=== PATIENT | female | born 1940 | race Hispanic/Latino ===

== ENCOUNTER 2023-03-07 17:09 | Emergency (ER) | payer OTHER, BC ==
--- OUTSIDE RECORDS SUMMARY | 2023-03-07 17:18 | XMS REPORT | Continuity of Care Document ---
:1940 Author Organization [facility] t Address [address] [place] [address] Care Team Providers Name Role Phone ADALBERTO PALMA Attending Clinician Unavailable Problems This patient has no known problems. Allergies, Adverse Reactions, Alerts This patient has no known allergies or adverse reactions. Social History Social Habit Start Date Stop Date Quantity Comments Source Sex Assigned At [address] [facility] Medications This patient has no known medications. Procedures This patient has no known procedures. Plan of Care Planned Activity Planned Date Details Comments Source Future Scheduled 2023-03-08 Influenza Vaccine (#1) [facility] 00:00[facility]00 [code = Influenza Medical Ce nter Vaccine (#1)] Future Scheduled 2022-11-21 DXA SCAN [code = DXA [facility] 00:00:00 SCAN] [facility] Future Scheduled 2022-07-[address] [facility] 00:00:00 (12+) [code = Medical Center DEPRESSION SCREENING (12+)] Future Scheduled 2022-07-08 FALLS RISK SCREENING [facility] 00:00:00 [code = FALLS RISK Medical C enter SCREENING] Future Scheduled 2008-11-[address] [facility] 00:00:00 WELLNESS (YEAR 2 or Medical Center FIRST YEAR if no IPPE) [code = MEDICARE ANNUAL WELLNESS (YEAR 2 or FIRST YEAR if no IPPE)] Future Scheduled 2007-11-10 PNEUMOCOCCAL 65+ YRS [facility] 00:00:00 (1 - PCV) [code = Medical Ce nter PNEUMOCOCCAL 65+ YRS (1 - PCV)] Future Scheduled 1992 SHINGLES VACCINES ([address] [facility] 00:00:00 of 2) [code = SHINGLES Medic al Center VACCINES (1 of 2)] Future Scheduled 1961 DTAP/TDAP/TD VACCINES [facility] 00:00:00 (1 - Tdap) [code = Medical C enter DTAP/TDAP/TD VACCINES (1 - Tdap)] Future Scheduled [address] [facility] 00:00:00 Counseling and Medical Cente r Screening (12+) [code = Tobacco Cessation Counseling and Screening (12+)] Future Scheduled 1943-05-12 COVID-19 VACCINE (#1) [facility] 00:00:00 [code = COVID-[address] VACCINE (#1)] Encounters Start End Encounter Admission Attending Care Care Encounter Source Date/Time Date/Time Type Type Clinicians Facility Department ID 2020-11-21 2020-11-21 Outpatient [facility] [id number] [facility] 00:00:00 00:00:00 ADALBERTO Results Test Description Test Time Test Comments Results Result Sourc e Comments RAD, BONE DENSITY 2020-11-21 Reason for STUDY 14:05:00 Exam:->Osteopenia , unspecified location; Other [facility] - specified MEDICAL CENTERName: disorders of bone LOBOPITA density and : 1940 Sex: structure, F multiple sites *FINAL REPORT EXAM: BONE MINERAL DENSITYHISTORY: Bone mineralization evaluationCOMPARISON : NoneDISCUSSION: Evaluation of the left hip, lumbar spine, and forearm was performed utilizing DEXA Hologic bone densitometer. The study is technically adequate. Left hip femoral neck bone mineral density: 0.68 g/cm2, T-score is -1.5, Z-score is 0.7. Left hip total bone mineral density: 0.79 g/cm2, T-score is -1.2, Z-score is 0.8. Lumbar spine total bone mineral density: 1.29 gm/cm2, T-score is 2.2, Z-score is 4.8. Proximal one third forearm bone mineral density: 0.66 gm/cm2, T-score is -0.6, Z-score is 2.3. 10 year fracture risk major osteoporotic fracture 23% and hip fracture 5.2%. Impression:Bone mineralization by WHO Classification is osteopenia, the fracture risk is increased. Signed: Escobar Subramanian MDReport Verified Date/Time: 11/21/2020 14:05:13 Reading Location: [facility] Room [address] [place] [address]
--- NOTE | 2023-03-07 18:53 | RAD REPORT ---
EXAM DESCRIPTION: RAD - Wrist Right 3 View - 03/07/2023 6:12 pm CLINICAL HISTORY: PAIN COMPARISON: No comparisons TECHNIQUE: Right wrist, 3 views. FINDINGS: No acute fracture. There is no dislocation or periosteal reaction noted. Scattered up to m oderate degenerative changes throughout the wrist. No other significant bony finding. Pronounced mine ralization along the posterior aspect of the proximal carpal row and in the region of the TFCC. Mild soft tissue swelling about the wrist and distal forearm especially laterally. IMPRESSION: Degenerative changes without acute osseous abnormality. Soft tissue swelling as above. 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
[2023-03-07 19:20] LABS: Hematocrit 32.9 % (36.0-45.0); Lymphocytes % 23.2 % (15.3-44.8); MCV 91.9 fL (80-100); MPV 8.1 fL (7.6-11.3); Platelets 207 thou/uL (152-406); RBC Red Blood Cell Count 3.58 M/uL (3.86-4.86)
[2023-03-07 19:36] LABS: Albumin 3.9 g/dL (3.4-5.0); Bilirubin Total 0.3 mg/dL (0.2-1.0); Potassium 4.5 mEq/L (3.5-5.1)
[2023-03-07] MEDS ORDERED: ONDANSETRON 4 MG/2 ML VIAL ONE (19:48)
[2023-03-07 20:56] LABS: Urine Bacteria None Seen /HPF (<20); Urine Bilirubin NEGATIVE (Negative); Urine Blood Negative (Negative); Urine Clarity Turbid (Clear); Urine Color Light-Yellow (Yellow); Urine Glucose NEGATIVE (Negative); Urine Mucus Slight /HPF (None Seen); Urine Protein NEGATIVE (Negative); Urine RBC <5 /HPF (None Seen); Urine Urobilinogen Normal (Normal); Urine pH 5.5 (5.0-7.0)
--- NOTE | 2023-03-07 21:36 | ER ---
Nurse's Notes [facility] Name: Sil Motta Age: 82 yrs Sex: Female : 1940 Arrival Date: 03/07/2023 Time: 17:09 Bed 18 Private MD: Maximus Cisneros Diagnosis: Other abnormal findings in urine Presentation: 03/07 17:31 Chief complaint: Patient's son or daughter states: the patient has been on three rounds ap3 of antibiotics for a UTI, but it is not getting better. daughter reports she was sent by PCP for admission and better antibiotics. patients daughter also reports a lump was found on her right side, and she has an outpatient MRI scheduled but was thinking if she's here, she could get it now. patients daughter also states the patient had a recent fall and had an injury to her right arm. Coronavirus screen: At this time, the client does not indicate any symptoms associated with coronavirus-19. Ebola Screen: No symptoms or risks identified at this time. Initial Sepsis Screen: Does the patient meet any 2 criteria? No. Patient's initial sepsis screen is negative. Does the patient have a suspected source of infection? Yes: Dysuria/Frequency/Urgency/UTI. Risk Assessment: Do you want to hurt yourself or someone else? Patient reports no desire to harm self or others. Onset of symptoms is unknown. 17:31 Method Of Arrival: Wheelchair ap3 17:31 Acuity: MATHIEU 3 ap3 Triage Assessment: 17:36 General: Appears in no apparent distress. Behavior is calm, cooperative, appropriate ap3 for age. Pain: Denies pain. Neuro: Level of Consciousness is awake, alert, obeys commands, Oriented to person, place, time, situation. Cardiovascular: Patient's skin is warm and dry. Respiratory: Airway is patent Respiratory effort is even, unlabored, Respiratory pattern is regular, symmetrical. : Parent/caregiver report the patient having recent UTI. Musculoskeletal: Parent/caregiver report the patient having pain in right arm. 17:37 : Reports urgency, urinary frequency. ap3 Historical: - Allergies: 17:35 Amoxicillin; ap3 - PMHx: 17:35 Hypertensive disorder; Diabetes mellitus; UTI; ap3 - Immunization history:: Client reports receiving the 2nd dose of the Covid vaccine. - Social history:: Smoking status: Patient denies any tobacco usage or history of. Screenin:36 [facility] ED Fall Risk Assessment (Adult) History of falling in the last 3 months, ap3 including since admission Yes- fall prone (multiple falls) (3 pts) Confusion or Disorientation No (0 pts) Intoxicated or Sedated No (0 pts) Impaired Gait Yes (1 pt) Mobility Assist Device Used Yes (1 pt). Abuse screen: Denies threats or abuse. Nutritional screening: No deficits noted. Tuberculosis screening: No symptoms or risk factors identified. Assessment: 19:00 General: Appears in no apparent distress. comfortable, Behavior is calm, cooperative, nj1 appropriate for age. Pain: Complains of pain in right wristand and right buttock/hip area. 19:00 Neuro: Level of Consciousness is awake, alert, obeys commands, Oriented to person, nj1 place, time, situation. Cardiovascular: Patient's skin is warm and dry. Respiratory: Airway is patent Respiratory effort is even, unlabored. : Reports Dysuria. Derm: Skin has skin tears on Left hand. 20:00 Reassessment: Patient appears in no apparent distress at this time. Patient and/or nj1 family updated on plan of care and expected duration. Pain level reassessed. Patient is alert, oriented x 3, equal unlabored respirations, skin warm/dry/pink. 21:45 Reassessment: No changes from previously documented assessment. Patient and/or family mb9 updated on plan of care and expected duration. Pain level reassessed. Patient is alert, oriented x 3, equal unlabored respirations, skin warm/dry/pink. Vital Signs: 17:31 BP 134 / 66; Pulse 78; Resp 18; Temp 98.8; Pulse Ox 100% ; Weight 71.67 kg; ap3 19:00 BP 178 / 83; Pulse 80; Resp 16; Pulse Ox 100% on R/A; nj1 20:00 BP 154 / 78; Pulse 77; Resp 18; Pulse Ox 96% on R/A; nj1 21:45 BP 150 / 71; Pulse 85; Resp 18; Pulse Ox 100% on R/A; mb9 ED Course: 17:12 Patient arrived in ED. rg4 17:13 Maximus Cisneros MD is Private Physician. rg4 17:15 Amrita Arenas PA-C is [facility]. sb4 17:15 Ector Martinez DO is Attending Physician. sb4 17:33 Triage completed. ap3 17:37 Arm band placed on left wrist. ap3 18:14 Wrist Right 3 View XRAY In Process Unspecified. EDMS 18:15 Patient placed in an exam room, on a stretcher. ap3 18:22 Ashleigh Kim, RN is Primary Nurse. nj1 19:00 Patient has correct armband on for positive identification. Bed in low position. Call nj1 light in reach. Adult w/ patient. 19:00 Provided Education on: fall precautions, call light. nj1 19:00 Inserted saline lock: 22 gauge in left antecubital area, using aseptic technique. Blood nj1 collected. 21:04 Report received from ILEANA Sotelo. mb9 21:35 Maximus Cisneros MD is Referral Physician. sb4 21:45 No provider procedures requiring assistance completed. IV discontinued, intact, mb9 bleeding controlled, No redness/swelling at site. Pressure dressing applied. Administered Medications: 19:40 Drug: Ondansetron IVP 4 mg Route: IVP; Site: left antecubital; nj1 20:37 Follow up: Response: No adverse reaction; Nausea is decreased nj1 Medication: 17:37 VIS not applicable for this client. ap3 Outcome: 21:35 Discharge ordered by . sb4 21:46 Discharged to home via wheelchair, with family. mb9 21:46 Condition: stable 21:46 Discharge instructions given to patient, family, Instructed on discharge instructions, follow up and referral plans. Demonstrated understanding of instructions, follow-up care. 21:46 Patient left the ED. mb9 Signatures: Dispatcher [employer] EDNJ Fabby Kelly rg4 Melinda Roblero RN RN ap3 Amrita Arenas PA-C PAWyattC sb4 Brianda Torres RN RN mb9 Ashleigh Kim, ILEANA RN nj1 Corrections: (The following items were deleted from the chart) 17:38 17:31 Chief complaint: Patient's son or daughter states: the patient has been on three ap3 rounds of antibiotics for a UTI, but it is not getting better. daughter reports she was sent by PCP for admission and better antibiotics. patients daughter also reports a lump was found on her right arm, and she has an outpatient MRI scheduled but was thinking if she's here, she could get it now. patients daughter also states the patient had a recent fall and had an injury to her right arm ap3
--- NOTE | 2023-03-07 21:36 | EDPHYS ---
Physician Documentation [facility] Name: Sil Motta Age: 82 yrs Sex: Female : 1940 Arrival Date: 03/07/2023 Time: 17:09 Bed 18 Private MD: Maximus Cisneros ED Physician Ector Martinez HPI: 03/07 18:23 This 82 yrs old Female presents to ER via Wheelchair with complaints of sb4 Urinary Problem, Abnormal Lab Results. 18:23 Onset: The symptoms/episode began/occurred gradually. Associated signs and symptoms: sb4 Pertinent positives: dysuria, fever, Pertinent negatives: abdominal pain, headache, vomiting. The patient has been recently seen by a physician: the patient's primary care provider. Patient states that she has had a UTI for some time now but has not resolved with 3 different rounds of antibiotics. She was sent by her PCP for IV antibiotic therapy. She also complains of falls. She had 1 last night and is complaining of right wrist pain. Historical: - Allergies: 17:35 Amoxicillin; ap3 - PMHx: 17:35 Hypertensive disorder; Diabetes mellitus; UTI; ap3 - Immunization history:: Client reports receiving the 2nd dose of the Covid vaccine. - Social history:: Smoking status: Patient denies any tobacco usage or history of. ROS: 03/08 01:39 Constitutional: Negative for fever, chills, and weight loss. sb4 : Positive for urinary frequency, small amounts. MS/extremity: Positive for pain, of the right wrist. All other systems are negative. Exam: 01:39 Constitutional: This is a well developed, well nourished patient who is awake, alert, sb4 and in no acute distress. Head/Face: Normocephalic, atraumatic. Eyes: Extra-ocular motions intact. Periorbital areas with no swelling, redness, or edema. ENT: Mucous membranes moist. Cardiovascular: Regular rate and rhythm with a normal S1 and S2. Respiratory: Lungs have equal breath sounds bilaterally, clear to auscultation and percussion. No rales, rhonchi or wheezes noted. No increased work of breathing, no retractions or nasal flaring. Abdomen/GI: Soft, non-tender, no distension. Skin: Warm, dry with normal turgor. Normal color with no rashes, no lesions, and no evidence of cellulitis. Neuro: Awake and alert, GCS 15, oriented to person, place, time, and situation. Cranial nerves II-XII grossly intact. Motor strength 5/5 in all extremities. Sensory grossly intact. Cerebellar exam normal. Normal gait. 01:39 Musculoskeletal/extremity: ROM: intact in all extremities, Circulation is intact in all extremities. Sensation intact. Vital Signs: 03/07 17:31 BP 134 / 66; Pulse 78; Resp 18; Temp 98.8; Pulse Ox 100% ; Weight 71.67 kg; ap3 19:00 BP 178 / 83; Pulse 80; Resp 16; Pulse Ox 100% on R/A; nj1 20:00 BP 154 / 78; Pulse 77; Resp 18; Pulse Ox 96% on R/A; nj1 21:45 BP 150 / 71; Pulse 85; Resp 18; Pulse Ox 100% on R/A; mb9 MDM: 17:40 Patient medically screened. sb4 03/08 01:39 Differential diagnosis: UTI, electrolyte abnormality, sepsis, fracture, dislocation. sb4 Data reviewed: vital signs, nurses notes, lab test result(s), radiologic studies, and as a result, I will discharge patient. Consideration of Admission/Observation Escalation of care including admission/observation considered. Management of patient was discussed with the following: Primary Care Provider: Dr. Cisneros- discussed all lab findings and patient's history at length, he and I agreed that she can be safely discharged home to follow up with him in the morning. he wishes for a urine culture to be sent and for no antibiotics to be prescribed at this time as there is no evidence of UTI, sepsis, necessity of IV antibiotics. I considered the following discharge prescriptions or medication management in the emergency department Antibiotics: At this time antibiotics are not recommended. Historians other than the Patient: Daughter/Son: daughters. Care significantly affected by the following chronic conditions: Diabetes, Hypertension. Counseling: I had a detailed discussion with the patient and/or guardian regarding the historical points, exam findings, and any diagnostic results supporting the discharge/admit diagnosis, the presence of at least one elevated blood pressure reading (>120/80) during this emergency department visit, lab results, radiology results, to return to the emergency department if symptoms worsen or persist or if there are any questions or concerns that arise at home. 03/07 17:40 Order name: Blood Culture Adult (2) sb4 03/07 17:40 Order name: CBC with Diff; Complete Time: 19:30 sb4 03/07 17:40 Order name: CMP; Complete Time: 19:47 sb4 03/07 17:40 Order name: Lactate w/ 2H reflex if indic.; Complete Time: 19:47 sb4 03/07 17:40 Order name: Urinalysis w/ reflexes; Complete Time: 21:03 sb4 03/07 21:20 Order name: Urine Culture sb4 03/07 17:40 Order name: Wrist Right 3 View XRAY; Complete Time: 18:54 sb4 03/07 17:40 Order name: IV Saline Lock - Large Bore; Complete Time: 19:21 sb4 03/07 17:40 Order name: Labs collected and sent; Complete Time: 19:21 sb4 03/07 17:40 Order name: O2 Per Protocol; Complete Time: 19:21 sb4 03/07 17:40 Order name: O2 Sat Monitoring; Complete Time: 19:21 sb4 03/07 17:40 Order name: Vital Signs; Complete Time: 19:21 sb4 Administered Medications: 03/07 19:40 Drug: Ondansetron IVP 4 mg Route: IVP; Site: left antecubital; nj1 20:37 Follow up: Response: No adverse reaction; Nausea is decreased nj1 Disposition: 18:29 Co-signature as Attending Physician, Ector FUNG was immediately available on-site ms3 in the Emergency Department for consultation in the care of the patient. Disposition Summary: 03/07/23 21:35 Discharge Ordered Location: Home sb4 Problem: an ongoing problem sb4 Symptoms: are unchanged sb4 Condition: Stable sb4 Diagnosis - Other abnormal findings in urine sb4 Followup: sb4 - With: Maximus Cisneros MD - When: Tomorrow - Reason: Recheck today's complaints, Continuance of care, Re-evaluation by your physician Forms: - Medication Reconciliation Form sb4 - Thank You Letter sb4 - Antibiotic Education sb4 - Prescription Opioid Use sb4 - Patient Portal Instructions sb4 - Leadership Thank You Letter sb4 Signatures: Dispatcher [employer] Melinda Huynh RN RN ap3 Ector Martinez DO DO ms3 Amrita Arenas PA-C PA-C sb4 Ashleigh Kim, RN RN nj1
[2023-03-07 23:35] VITALS: TEMP 98.8; O2SAT 100
[2023-03-08 00:07] VITALS: BP 150/71
== END 2023-03-07 21:46 | disposition home or self-care (01) ==
LOC: ER 17:09
DX: R82.998 Other abnormal findings in urine (principal); M25.531 Pain in right wrist; E11.9 Type 2 diabetes mellitus without complications; I10 Essential (primary) hypertension; Z88.1 Allergy status to other antibiotic agents
CPT/HCPCS: 87040 ×2; 87088; 85025; 81001; 87086; 36415; 83605; 87077; 87186; 80053; 73110; 96374; 99284; J2405